=== PATIENT | female | born 1980 ===

== ENCOUNTER → 2017-04-10 | Emergency (ER) | payer OTHER ==
[~2017-04-10] VITALS: Ht 149.9 cm; Wt 65.8 kg
[~2017-04-10] MED LIST: AMOX1TAB12 PO; INTESTINEX680 MG PO; SPRINTEC1 TAB
== END | disposition home or self-care (01) ==
LOC: ER 07:52
DX: B34.9 Viral infection, unspecified (principal)

== ENCOUNTER 2019-02-11 13:11 | Outpatient (CLI) | payer OTHER | END 2019-02-11 13:50 | disposition home or self-care (01) | LOC: MRI 13:11 | DX: D49.6 Neoplasm of unspecified behavior of brain (principal); G40.909 Epilepsy, unspecified, not intractable, without status epilepticus; M50.20 Other cervical disc displacement, unspecified cervical region; M50.30 Other cervical disc degeneration, unspecified cervical region | CPT/HCPCS: 70553; 72141 ==

== ENCOUNTER → 2020-02-09 | Outpatient (CLI) | payer OTHER | END | disposition home or self-care (01) | LOC: OFIC 805 10:00 | PROVIDERS: ATTEND Otolaryngology | DX: J30.89 Other allergic rhinitis (principal); R09.89 Other specified symptoms and signs involving the circulatory and respiratory systems; K21.9 Gastro-esophageal reflux disease without esophagitis; J34.3 Hypertrophy of nasal turbinates ==

== ENCOUNTER → 2020-02-25 | Outpatient (CLI) | payer OTHER ==
[~2020-02-25] MED LIST changes: +MISOPROSTOL200 MCG PO
== END | disposition home or self-care (01) ==
LOC: PRENATAL 09:26
PROVIDERS: ATTEND Obstetrics & Gynecology Maternal & Fetal Medicine
DX: O34.11 Maternal care for benign tumor of corpus uteri, first trimester (principal); O26.851 Spotting complicating pregnancy, first trimester; O36.80X1 Pregnancy with inconclusive fetal viability, fetus 1; O09.511 Supervision of elderly primigravida, first trimester; O99.891 Other specified diseases and conditions complicating pregnancy; Z36.89 Encounter for other specified antenatal screening; Z3A.08 8 weeks gestation of pregnancy

== ENCOUNTER 2020-04-01 21:50 | Emergency (ER) | payer OTHER ==
[~2020-04-01] VITALS: Ht 149.9 cm; Wt 68.9 kg
[~2020-04-01 21:50] MED LIST changes: -MISOPROSTOL200 MCG PO
[2020-04-02] MEDS ORDERED: MISOPROSTOL200 MCG PO (04:07)
== END 2020-04-02 04:15 | disposition home or self-care (01) ==
LOC: ER 21:50
DX: O03.89 Complete or unspecified spontaneous abortion with other complications (principal)

== ENCOUNTER 2020-05-04 13:15 | Outpatient (CLI) | payer OTHER ==
[~2020-05-04 13:15] MED LIST changes: +MISOPROSTOL200 MCG PO
== END 2020-05-04 13:24 | disposition home or self-care (01) ==
LOC: MAMO-SONO 13:15 → SONOGRAMA 13:15
PROVIDERS: ATTEND Specialist
DX: D25.1 Intramural leiomyoma of uterus (principal)

== ENCOUNTER 2020-07-24 09:57 | Outpatient (CLI) | payer OTHER ==
[~2020-07-24 09:57] MED LIST changes: +ACETAMINOPHEN500 M1
== END 2020-07-24 11:20 | disposition home or self-care (01) ==
LOC: SONOGRAMA 09:57
PROVIDERS: ATTEND Specialist
DX: D25.1 Intramural leiomyoma of uterus (principal); N20.0 Calculus of kidney

== ENCOUNTER 2020-08-16 09:59 | Outpatient (CLI) | payer OTHER | END 2020-08-16 10:05 | disposition home or self-care (01) | LOC: MAMO-SONO 09:59 | PROVIDERS: ATTEND Specialist | DX: N60.11 Diffuse cystic mastopathy of right breast (principal); N60.12 Diffuse cystic mastopathy of left breast ==

== ENCOUNTER 2021-02-26 09:22 | Outpatient (CLI) | payer OTHER | END 2021-02-26 09:32 | disposition home or self-care (01) | LOC: SONOGRAMA 09:22 | DX: N60.01 Solitary cyst of right breast (principal); N64.59 Other signs and symptoms in breast ==

== ENCOUNTER 2022-08-01 12:00 | Outpatient (CLI) | payer OTHER | END 2022-08-01 12:12 | disposition home or self-care (01) | LOC: MAMO-SONO 12:00 | PROVIDERS: ATTEND Obstetrics & Gynecology | DX: E04.8 Other specified nontoxic goiter (principal); N63.12 Unspecified lump in the right breast, upper inner quadrant; N63.21 Unspecified lump in the left breast, upper outer quadrant ==

== ENCOUNTER 2023-06-11 11:16 | Outpatient (CLI) | payer OTHER | END 2023-06-11 11:27 | disposition home or self-care (01) | LOC: SONOGRAMA 11:16 | PROVIDERS: ATTEND Internal Medicine | DX: D17.0 Benign lipomatous neoplasm of skin and subcutaneous tissue of head, face and neck (principal) ==

== ENCOUNTER 2024-08-25 10:31 | Outpatient (CLI) | payer OTHER | END 2024-08-25 10:42 | disposition home or self-care (01) | LOC: MAMO-SONO 10:31 | PROVIDERS: ATTEND Obstetrics & Gynecology | DX: N63.21 Unspecified lump in the left breast, upper outer quadrant (principal); N63.12 Unspecified lump in the right breast, upper inner quadrant ==

== ENCOUNTER 2024-12-16 10:06 | Outpatient (CLI) | payer OTHER | END 2024-12-16 10:09 | disposition home or self-care (01) | LOC: SONOGRAMA 10:06 | DX: E04.8 Other specified nontoxic goiter (principal) ==